=== PATIENT | female | born 1960 ===

== ENCOUNTER 2025-07-23 11:08 | Outpatient (CLI) | payer OTHER ==
[~2025-07-23 11:08] MED LIST: CEFADROXIL500 MG PO; KETO10TA2 PO; SYNTHROID100 MCG
== END 2025-07-23 11:19 | disposition home or self-care (01) ==
LOC: RAD 11:08
DX: M99.03 Segmental and somatic dysfunction of lumbar region (principal); M99.04 Segmental and somatic dysfunction of sacral region; M99.05 Segmental and somatic dysfunction of pelvic region; M54.51 Vertebrogenic low back pain